=== PATIENT | male | born 1970 | race Caucasian/White ===

== ENCOUNTER 2018-05-07 21:57 | Emergency (ER) | payer OTHER ==
[~2018-05-07] VITALS: Ht 188 cm; Wt 81.6 kg
--- NOTE | 2018-05-07 22:53 | NUR ---
DR. PAVEL BRISENO MD AT BEDSIDE FOR MSE.
[2018-05-07] MEDS ORDERED: HYDROCODONE/APAP 10-325 MG TABLET ONE (23:29)
[2018-05-07] MEDS ORDERED: HYDROCODONE/APAP 10-325 MG TABLET PO ONE (23:30)
--- NOTE | 2018-05-08 00:19 | NUR ---
Patient discharged to home in stable conditon. Written and verbal after care instructions given. Patient verbalizes understanding of instructions. Pt ambulated out of ER in steady gait. Pt states his friend will pick him up. All belongings with pt. VSS. No acute distress noted.
[2018-05-08 00:21] VITALS: BP 132/78
== END 2018-05-08 00:21 | disposition home or self-care (01) ==
LOC: ER 21:58
DX: G89.29 Other chronic pain (principal); M25.512 Pain in left shoulder; M54.9 Dorsalgia, unspecified; F11.23 Opioid dependence with withdrawal
CPT/HCPCS: 73020; A4663

== ENCOUNTER 2022-04-19 17:27 | Emergency (ER) | payer OTHER ==
[~2022-04-19] VITALS: Ht 188 cm; Wt 94.3 kg
[2022-04-19] MEDS ORDERED: GABA300C PO (19:28)
[2022-04-19] MEDS ORDERED: HYDROCODONE/APAP 5-325MG TABLET ONE (19:30)
[2022-04-19] MEDS ORDERED: GABAPENTIN 300 MG CAPSULE ONE (19:30)
[2022-04-19] MEDS ORDERED: TDAP DIPH,PERTUSS,TET VAC/PF 0.5 ML DISP.SYRIN IM ONE (19:31)
[2022-04-19] MEDS: HYDROCODONE/APAP 5-325MG TABLET PO ONE (19:40)
[2022-04-19] MEDS: GABAPENTIN 300 MG CAPSULE PO ONE (19:40)
[2022-04-19] MEDS: TDAP DIPH,PERTUSS,TET VAC/PF 0.5 ML DISP.SYRIN IM ONE (19:46)
--- NOTE | 2022-04-19 19:47 | NUR ---
Patient discharged to home in stable condition. Written and verbal after care instructions given. Patient verbalizes understanding of instructions. Stressed follow up or return to ER for worsening s/s. pt ambulated with steady gait. denies pain. AOx4
[2022-04-19 19:48] VITALS: BP 108/75
== END 2022-04-19 19:48 | disposition home or self-care (01) ==
LOC: ER 17:35
DX: G89.29 Other chronic pain (principal); M54.9 Dorsalgia, unspecified; F41.9 Anxiety disorder, unspecified
CPT/HCPCS: 90715; A4663

== ENCOUNTER 2022-04-28 23:28 | Emergency (ER) | payer OTHER ==
[~2022-04-28] VITALS: Ht 188 cm; Wt 90.7 kg
[~2022-04-28 23:28] MED LIST: GABA300C PO
--- NOTE | 2022-04-29 01:00 | NUR ---
Dr. Ladd at bedside for MSE.
[2022-04-29] MEDS ORDERED: HYDROCODONE/APAP 10-325 MG TABLET ONE (01:08)
--- NOTE | 2022-04-29 01:14 | NUR ---
Xray at bedside.
[2022-04-29] MEDS ORDERED: HYDROCODONE/APAP 10-325 MG TABLET PO ONE (01:15)
[2022-04-29] MEDS ORDERED: CLON1TAB PO (01:48)
[2022-04-29] MEDS ORDERED: HYDR-3980 PO ×2 (01:48→02:03)
[2022-04-29] MEDS ORDERED: CLON1TAB12 PO (02:03)
--- NOTE | 2022-04-29 02:07 | NUR ---
Patient discharged to home in stable condition. Written and verbal after care instructions given. Patient verbalizes understanding of instructions. Stressed follow up or return to ER for worsening s/s. Patient out of ER with crutches, no falls noted, no acute signs of distress, VSS, all belongings taken, provided with copies of xray results, CD, instructed not to drive, to be driven home by friend via private vehicle.
[2022-04-29 02:08] VITALS: BP 105/65
== END 2022-04-29 02:08 | disposition home or self-care (01) ==
LOC: ER 23:30
DX: S82.61XA Displaced fracture of lateral malleolus of right fibula, initial encounter for closed fracture (principal); W18.30XA Fall on same level, unspecified, initial encounter; Y92.89 Other specified places as the place of occurrence of the external cause; G89.29 Other chronic pain; M54.9 Dorsalgia, unspecified; Z79.899 Other long term (current) drug therapy
CPT/HCPCS: 73610; A4663

== ENCOUNTER 2022-05-19 23:08 | Emergency (ER) | payer OTHER ==
[~2022-05-19] VITALS: Ht 182.9 cm; Wt 90.7 kg
[~2022-05-19 23:08] MED LIST changes: +CLON1TAB PO; +CLON1TAB12 PO; +HYDR-3980 PO
[2022-05-19] MEDS ORDERED: SULF1TAB48 PO (23:29)
[2022-05-19] MEDS ORDERED: ACETAMINOPHEN ES 500 MG TABLET PO ONE (23:30)
[2022-05-19] MEDS ORDERED: SULFAMETH/TRIMETH 800/160 MG TABLET PO ONE (23:30)
[2022-05-19] MEDS ORDERED: ACETAMINOPHEN ES 500 MG TABLET ONE (23:31)
[2022-05-19] MEDS ORDERED: SULFAMETH/TRIMETH 800/160 MG TABLET ONE (23:31)
--- NOTE | 2022-05-19 23:40 | NUR ---
posterior SHort leg fiberglass splint applied to Rt ankle without difficulty, pt tolerated well. and krutches given along with demo. Pt states that he is expert at using krutches. Pt retyurned good krutch demo and answered all questions correctly.
--- NOTE | 2022-05-19 23:40 | NUR ---
Pt had good CMS and cap refil before and after application of splint.
--- NOTE | 2022-05-20 00:10 | NUR ---
Pt given thorough DC instructions and med info and pt confirmed understanding of aftercare. VSS, PE WNL, NAD, PERRLA, AAOX4, denies mod to severe pain, sob, n/v, dizziness or discomfort. 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 No s/sx of distress present.
[2022-05-20 00:46] VITALS: BP 119/79
== END 2022-05-20 00:47 | disposition home or self-care (01) ==
LOC: ER 23:11
DX: S82.831D Other fracture of upper and lower end of right fibula, subsequent encounter for closed fracture with routine healing (principal); V43.92XD Unspecified car occupant injured in collision with other type car in traffic accident, subsequent encounter; L98.9 Disorder of the skin and subcutaneous tissue, unspecified; R50.9 Fever, unspecified; K08.9 Disorder of teeth and supporting structures, unspecified; F17.210 Nicotine dependence, cigarettes, uncomplicated; Z86.19 Personal history of other infectious and parasitic diseases
CPT/HCPCS: A4663; A9150

== ENCOUNTER 2023-01-07 12:44 | Emergency (ER) | payer OTHER ==
[~2023-01-07] VITALS: Ht 188 cm; Wt 99.8 kg
[~2023-01-07 12:44] MED LIST changes: +SULF1TAB48 PO
[2023-01-07] MEDS ORDERED: OLANZAPINE 10 MG VIAL IM ONE ×2 (13:00→13:05)
[2023-01-07] MEDS ORDERED: HYDROCODONE/APAP 5-325MG TABLET PO ONE (13:00)
[2023-01-07] MEDS ORDERED: HYDROCODONE/APAP 5-325MG TABLET ONE (13:05)
--- NOTE | 2023-01-07 13:36 | NUR ---
PT out of ER for CT scan.
--- NOTE | 2023-01-07 13:49 | NUR ---
PT back from Ct scan, resting in bed w/ both eyes closed.
[2023-01-07 16:08] VITALS: BP 118/70
--- NOTE | 2023-01-07 16:08 | NUR ---
Patient discharged to home in stable condition. Written and verbal after care instructions given. Patient verbalizes understanding of instructions. Stressed follow up or return to ER for worsening s/s.
== END 2023-01-07 16:09 | disposition home or self-care (01) ==
LOC: ER 12:44
DX: M54.50 Low back pain, unspecified (principal); V43.62XA Car passenger injured in collision with other type car in traffic accident, initial encounter; Y92.410 Unspecified street and highway as the place of occurrence of the external cause; R20.2 Paresthesia of skin; Z86.19 Personal history of other infectious and parasitic diseases; F17.210 Nicotine dependence, cigarettes, uncomplicated; M51.26 Other intervertebral disc displacement, lumbar region
CPT/HCPCS: 72131; A4663; J2358

== ENCOUNTER 2023-01-13 14:23 | Emergency (ER) | payer OTHER ==
[~2023-01-13] VITALS: Ht 188 cm; Wt 90.7 kg
[2023-01-13] MEDS ORDERED: SULF1TAB48 PO (14:48)
[2023-01-13] MEDS ORDERED: MUPI22OI2 TP (14:49)
== END 2023-01-13 14:59 | disposition home or self-care (01) ==
LOC: ER 14:31
DX: R20.2 Paresthesia of skin (principal); L98.8 Other specified disorders of the skin and subcutaneous tissue; Z86.19 Personal history of other infectious and parasitic diseases; F17.210 Nicotine dependence, cigarettes, uncomplicated
CPT/HCPCS: A4663